=== PATIENT | female | born 1955 | race Caucasian/White ===

== ENCOUNTER 2017-01-02 16:47 | Inpatient (IN) | payer MEDICARE, MEDICAID ==
[~2017-01-02] VITALS: Ht 157.5 cm; Wt 76.0 kg
--- NOTE | ~2017-01-02 | ECH ---
Transthoracic Echocardiography Report (TTE) Demographics Patient Name SOHA IRVIN, Date of Study 01/03/2017 MYRA Patient Number [id number] Visit Number [id number] Date of 1955 Room Number 432 Gender Female Number Age 61 year(s) Referring Jacob Morris MD Chinchilla Farmer Edla Ortiz [facility] Physician Az Carter MD Physician Interpreting Jacob Morris Arcade Technician Physician MD Supervising Ordering Az Carter MD/MLP Physician Nurse Stress Sterile Processing Tech Conclusions Summary Technically fair exam. The estimated left ventricular ejection fraction is 65-70%. Mild-moderate left ventricular hypertrophy. Diastolic assessment reveals Grade I diastolic dysfunction. Mild mitral regurgitation by color Doppler. There is trivial aortic regurgitation by color Doppler. The ascending aorta appears mildly dilated. The maximum diameter measures 3.7 cm. Procedure Type of Study TTE procedure:Echo Complete SF. Procedure Date Date: 01/03/2017 Start: 08:00 AM Technical Quality: Fair due to body habitus. Indications:Elevated Troponin. Appropriate Use Criteria: 9 Height: 62 inches Weight: 163 pounds BSA: 1.75 m Rhythm: Within normal limits HR: 93 bpm BP: 119/72 mmHg M-Mode/2D Measurements LV Diastolic Dimension: 4.21 cm LV Systolic Dimension: 2.53 cm LV Septum Diastolic: 1.54 cm LV PW Diastolic: 1.32 cm AO Root Dimension: 3.02 cm Cardiac Output: 7.41 l/min LA Dimension: 3.89 cm Cardiac Index: 4.23 l/min*m RV Diastolic Dimension: 2.7 cm LA volume index: 28 ml/m LVOT: 2.04 cm LVOT VTI: 24.39 cm RV Base: 2.96 cm LV Stroke volume: 79.68 ml RV Mid: 2.2 cm LV Stroke volume index: 45.53 ml/m RV Length: 5.6 cm Doppler Measurements AV Peak Velocity: 1.47 m/s MV Peak E-Wave: 0.58 m/s AV Peak Gradient: 8.64 mmHg MV Peak A-Wave: 0.91 m/s AV Mean Gradient: 4.53 mmHg MV E/A Ratio: 0.64 LVOT Peak Velocity: 1.41 m/s MV P1/2t: 57.7 msec AV Area (Continuity):3.01 cm MV Deceleration Time: 203.1 msec MV Area (PHT): 3.81 cm PV Peak Velocity: 1.15 m/s PV Peak Gradient: 5.28 mmHg RA Area: 11 cm Findings Left Ventricle The left ventricle is normal in size . Mild-moderate left ventricular hypertrophy. Diastolic assessment reveals Grade I diastolic dysfunction. Right Ventricle Normal right ventricle structure and function. Left Atrium Normal left atrial size. Right Atrium Normal right atrial size. Mitral Valve Normal mitral valve structure and function. Mild mitral regurgitation by color Doppler. Aortic Valve The aortic valve is mildly sclerotic. There is trivial aortic regurgitation by color Doppler. Tricuspid Valve Normal tricuspid valve structure and function. Pulmonic Valve The pulmonic valve is not well visualized. Pericardial Effusion No evidence of pericardial effusion. Miscellaneous The ascending aorta appears mildly dilated. The maximum diameter measures 3.7 cm. Pleural Effusion No evidence of pleural effusion. Contractility Score LV regional wall motion:(0-Non visualized 1-Normal 2-Hypokinesis 3-Akinesis 4-Dyskinesis 5-Aneurysm) Signature
--- NOTE | 2017-01-03 13:23 | HP ---
ADMIT: 01/02/2017 RM/LOC: 432 [facility] MR#: [id number] [address] [address] MYRA FLORES [address] [place] [address] History and Physical SEX: F AGE: 61 : 1955 DATE OF SERVICE: ADDENDUM: I have seen and examined Mrs. Shreya Mcdaniel. I have reviewed Dr. Kwon's notes. I have agreed with the assessment and plan. I will go forward with antibiotic control with ceftriaxone for her recurrent urinary infection. Maintain her on some respiratory support. She may have early pulmonary involvement as well. Elevated troponin consistent with non-STEMI. Maintain her on heparin. Cardiology is consulted to evaluate the patient. We do await their direction on the non-STEMI. Mark Bernardo MD/ bryce JOB #: [id number] CC: Mark Bernadro, Attending Physician Mark Bernardo, Family Physician
--- NOTE | 2017-01-06 14:47 | CO ---
ADMIT: 01/02/2017 RM/LOC: 432 [facility] MR#: [id number] [address] [place], [place] [address] MYRA [address] [place] [address] Consultation SEX: F AGE: 61 : 1955 DATE OF CONSULTATION: 01/04/2017 ATTENDING PHYSICIAN: Mark Bernardo CONSULTING PHYSICIAN: Aubree Swanson MD REASON FOR CONSULT: ESBL E. coli bacteremia. Thank you, Dr. Bernardo, for the consult and involving me in this patient's care. HISTORY OF PRESENT ILLNESS: The patient is a 61-year-old, female, originally from [place], who presented to the ER on December 2016 with complaints of lower back pain, fever, and chills. Symptoms started 4 days prior to admission and she also complained of dysuria and increased urgency and cramping. She was also feeling overall weak. She also has history of dermatomyositis and is on azathioprine and chronic prednisone. She was found to have ESBL UTI and later blood cultures also grew ESBL E. coli. She was started on meropenem, and clinically, urinary symptoms have improved. She was also noted to have elevated troponins and has been evaluated by Cardiology. She is currently on heparin drip. She also complains of cough with productive sputum, which is yellowish to white in color and wheezing. She does not have any known prior pulmonary problems. PAST MEDICAL HISTORY: 1. Type 2 diabetes mellitus. 2. Dermatomyositis, followed by Dr. Dickson. 3. Chronic prednisone use. 4. Osteopenia. ALLERGIES: NO KNOWN DRUG ALLERGIES. CURRENT MEDICATIONS: 1. Aspirin. 2. Prednisone 20 mg daily. 3. Lipitor. 4. Lopressor. 5. Mucinex. 6. Mesa-3. 7. Plavix. 8. Protonix. 9. Vitamin D. 10.Insulin sliding scale. 11.Meropenem 500 mg every 6 hours. SOCIAL HISTORY: She lives alone at home. Denies any smoking, alcohol, or recreational drug use. FAMILY HISTORY: Denies any family history of cardiac disease, diabetes ADMIT: 01/02/2017 RM/LOC: 432 [facility] MR#: [id number] [address] [address] HOYOS BRANDEEMYRA [address] [place] [address] Consultation SEX: F AGE: 61 : 1955 mellitus, or cancer in her family. REVIEW OF SYSTEMS: A 10-point review of systems negative except as mentioned in HPI. PHYSICAL EXAMINATION: VITAL SIGNS: Current temperature 98.5, T-max 103.8, heart rate 78, respirations 20, blood pressure 99/61, and 93% on 2 L. GENERAL: No acute distress. HEENT: Head is normocephalic and atraumatic. Extraocular movements are intact. LYMPH: No palpable anterior/posterior cervical or supraclavicular lymphadenopathy. CHEST: Bilateral wheezing noted. Decreased breath sounds at bases. CARDIOVASCULAR: S1, S2 heard. Regular rate and rhythm. ABDOMEN: Soft, obese, nontender. Active bowel sounds. EXTREMITIES: No peripheral edema. SKIN: No rash noted on exposed skin. PSYCH: Normal affect. Memory intact. DATA REVIEW: CBC today shows white count of 5, hemoglobin 12.8, and platelets of 100. Blood and urine cultures are growing ESBL E. coli. E. coli sensitive to pip/tazo, cefoxitin, meropenem, amikacin, and nitrofurantoin. Renal ultrasound showed bilateral renal cysts. ASSESSMENT AND PLAN: 1. Extended-spectrum beta-lactamase Escherichia coli bacteremia secondary to 2. Extended-spectrum beta-lactamase Escherichia coli urinary tract infection. I will stop the meropenem and narrow antibiotics down to ertapenem IV 1 g once daily. Repeat blood cultures are pending. The patient clinically feels better. 2. Cough/wheezing. Chest x-ray was not suggestive of any pneumonia. We will check a sputum culture and sensitivity and also check sputum wet mount for strongyloides as she is from an endemic area and has been on chronic prednisone. 3. Non ST-elevation myocardial infarction, on heparin drip. 4. Bilateral renal cysts. 5. Dermatomyositis on chronic prednisone. Thank you for the consult, and I will continue to follow the patient. Aubree Swanson MD/ bryce JOB #: [id number] CC: Mark Bernardo, Attending Physician Mark Bernardo, Family Physician
[2017-01-07] MEDS ORDERED: FARXIGA10 MG PO (18:32)
[2017-01-07] MEDS ORDERED: IMURAN DPS50 MG PO (18:32)
[2017-01-07] MEDS ORDERED: ZESTRIL DPS2.5 MG PO (18:32)
[2017-01-07] MEDS ORDERED: VITAMIN D250000 UNIT PO (18:33)
[2017-01-07] MEDS ORDERED: DELTASONE DPS10 MG PO (18:33)
[2017-01-07] MEDS ORDERED: OMEGA 3 1,0001 EACH PO (18:34)
[2017-01-07] MEDS ORDERED: MIRALAX PACKET17 GM PO (18:34)
[2017-01-07] MEDS ORDERED: ACCUNEB DP0.63 MG/3 PO (18:34)
[2017-01-07] MEDS ORDERED: PROVENTIL HFA6.7 GM IH (18:35)
[2017-01-07] MEDS ORDERED: SYMBICORT160 MCG/6 IH (18:35)
[2017-01-07] MEDS ORDERED: INVANZ1 GM IV (18:35)
[2017-01-07] MEDS ORDERED: ASPIRIN81 MG (18:36)
[2017-01-07] MEDS ORDERED: MUCINEX600 MG PO (18:36)
[2017-01-07] MEDS ORDERED: PLAVIX75 MG PO (18:36)
[2017-01-07] MEDS ORDERED: PROTONIX40 MG PO (18:36)
[2017-01-07] MEDS ORDERED: LOPRESSOR DPS50 MG PO (18:36)
--- NOTE | 2017-01-08 07:09 | ER ---
ADMIT: 01/02/2017 RM/LOC: 432 [facility] MR#: [id number] [address] [place], [place] [address] MYRA FLORES [address] [place] [address] Emergency Room Report SEX: F AGE: 61 : 1955 DATE: 01/02/2017 HISTORY OF PRESENT ILLNESS: The patient is a 61-year-old female with past medical history of diabetes on oral medications, asthma, and COPD on no home O2 oxygen, who came to the ER with chief complaint of feeling weak and tired for the last 3 days and fever and chills. Fever to 101 and urinary symptoms, urgency, hesitancy, and nocturia. The patient also complains of bilateral lower back paraspinal pain, which does not increase with palpation of the area, and there is no radiation, and the pain is moderate in severity and sharp. In the ER, the patient had temperature of 100.8, received Tylenol, was tachycardic to 120 and sepsis workup was started. IV fluid was given to the patient, the patient had O2 saturation of 86% to 88% on room air, but states she does not feel short of breath, previous O2 saturation per chart was 2 years ago, and it was 93%, the patient was put on nasal O2 two liters, which increased the O2 saturation to 92%. PHYSICAL EXAMINATION: HEAD AND NECK: Noncontributory, trachea midline. RESPIRATIONS: Bilateral wheezing for which the patient got breathing treatment with DuoNeb nebulizer in the ER, there were no crackles in the lungs. HEART: Normal S1, S2 without any murmurs. ABDOMEN: Soft. EXTREMITIES: No lower extremity edema or tenderness, no CVA tenderness. Chest x-ray showed left lung atelectasis without any infiltration, which was better than the previous x-ray on 2013, urine was turbid color, was positive for 250 white BC, and nitrite was positive and there were lots of clumps all suggestive of urinary tract infection for which the patient was given ceftriaxone 1 g IV in the ER. Considering the patient's recent weakness and low O2 saturation, EKG was done, which did not show any ST or T changes or arrhythmia, cardiac enzymes were sent and troponin I was 1.46, and D-dimer was also 0.9, the patient was consulted and admitted to Internal Medicine with Cardiology on board for non-STEMI, urinary tract infection. The patient was started on heparin IV in the ER. Wayne Conley MD/ bryce JOB #: [id number] CC: Mark Bernardo MD, Attending Physician Mark Bernardo MD, Family Physician
--- NOTE | 2017-01-13 16:10 | HP ---
ADMIT: 01/02/2017 RM/LOC: 432 [facility] MR#: [id number] [address] [address] MYRA FLORES [address] [place] [address] History and Physical SEX: F AGE: 61 : 1955 DATE OF SERVICE: 01/02/2017 HISTORY OF PRESENT ILLNESS: A 61-year-old female who presents with fevers, chills, suprapubic and back pain, dysuria since . She has noted painful urination and increased urgency and cramping back pain that is worse with urination. She does report generalized weakness as well, but sounds like this has been progressive over the last 7 years. She has been having chills and nausea, but no vomiting. Energy and appetite are stable and the patient has been drinking lots of fluids. Endorses chills and temperature this morning was 101 degrees at home. She did report an episode of shortness of breath earlier today after having intense chills and rigors. Reports the DuoNebs helped. Denies any chest pain, dizziness, lightheadedness, cough, nasal congestion, sick contacts, diarrhea, or constipation. Denies any history of angina or cardiac problems. Denies palpitations or focal weakness. Upon arrival to the emergency room, the patient was given Tylenol, 1 L normal saline, Rocephin, and started on a heparin drip. The patient will be admitted for sepsis likely secondary to urinary tract infection and NSTEMI. PAST MEDICAL HISTORY: Type 2 diabetes, noninsulin dependent, chronic prednisone use, dermatomyositis, and myopathy, osteopenia. HOME MEDICATIONS: 1. Albuterol nebulizer four times a day p.r.n. 2. Azathioprine 50 mg daily. 3. Calcium carbonate. 4. Vitamin D3 of 1000 units. 5. Farxiga 10 mg daily. 6. Folic acid 2 mg daily. 7. Lisinopril 20 mg daily. 8. Metoprolol 100 mg b.i.d. 9. Prilosec 40 mg daily. 10.MiraLax 17 g daily. 11.Prednisone 20 mg daily. ALLERGIES: NO KNOWN DRUG ALLERGIES. FAMILY HISTORY: No known history of heart disease, otherwise noncontributory. SOCIAL HISTORY: Former smoker, denies alcohol use. REVIEW OF SYSTEMS: Full review of systems was obtained and it was negative other than noted in the HPI above. PHYSICAL EXAMINATION: VITAL SIGNS: Upon arrival in the ER include blood pressure of 98/75, heart rate 118, respiratory rate 20, temperature 100.8 degrees Fahrenheit, oxygen saturation 92% on 2 L. GENERAL: Alert and oriented female, who appears stated age, in no acute distress. HEENT: Mucous membranes moist. Extraocular movements are intact. No scleral ADMIT: 01/02/2017 RM/LOC: 432 [facility] MR#: [id number] [address] [place] [id number] [facility] [address] [place] [address] History and Physical SEX: F AGE: 61 : 1955 icterus. CARDIOVASCULAR: Tachycardic, otherwise regular rhythm, no murmurs or gallops noted. RESPIRATORY: Lungs are clear to auscultation bilaterally on my exam, though diminished at bases. Normal respiratory effort. Normal work of breathing. Nasal cannula in place at 2 L. ABDOMEN: Mild suprapubic tenderness, otherwise nontender. Bowel sound present. No costovertebral angle tenderness. EXTREMITIES: No lower extremity edema. Pulses are intact. SKIN: No rashes or lesions noted on exposed skin. NEUROLOGIC: 3/5 strength of distal muscles of upper and lower extremities. 3/5 strength of proximal lower extremities muscles. PSYCH: The patient answers questions appropriately and does not appear anxious or depressed. LABORATORY DATA: White blood cell count 11, with neutrophil predominance. Creatinine 0.5, troponin 1.460, procalcitonin 3.41, lactic acid 1.7, lipase normal, albumin 2.8. AST mildly elevated at 50. Influenza negative. UA with positive nitrite and positive leukocyte esterase and 252 white blood cells, 1 squamous cell. Urine culture and blood culture are pending. IMAGING: Chest x-ray on my read appears similar to prior, old read notes some new markings in the right lung base which could be atelectasis. ASSESSMENT AND PLAN: A 61-year-old female with history of type 2 diabetes and dermatomyositis on chronic prednisone and azathioprine, admitted for sepsis likely due to urinary tract infection and [id number] myocardial infarction. 1. Sepsis secondary to urinary tract infection and possible pyelonephritis. a. We will continue Rocephin and fluid resuscitation. b. Continue p.r.n. Tylenol. c. We will await urine and blood cultures. d. We will get ultrasound to evaluate for possible pyelonephritis. 2. Iyv-PE-zptojpxro myocardial infarction. a. Troponin 1.46, we will trend it to peak. b. Plan for echocardiogram and Cardiology consult in the morning, we will make n.p.o. midnight, pending Cardiology plans. c. Continue heparin for ACS protocol. d. Give aspirin, Plavix, atorvastatin. We will hold beta delores due to hypotension and sepsis. e. Also holding MART inhibitor for sepsis as well. 3. Type 2 diabetes. a. Holding Farxiga while inpatient. b. We will do sliding scale insulin and four times daily blood sugar checks and monitor for now. c. We will check hemoglobin A1c. 4. Dermatomyositis with chronic prednisone and azathioprine use. ADMIT: 01/02/2017 RM/LOC: 432 [facility] MR#: [id number] [facility] [address] [address] [facility] [address] [place] [address] History and Physical SEX: F AGE: 61 : 1955 a. We will continue prednisone 20 mg daily. b. We will hold azathioprine due to sepsis. c. We will threshold to start stress-dose steroids if the patient does not improve after fluid bolus. d. We will consult PT and OT. 5. Hypoxia. a. Requiring 2 L nasal cannula, chest x-ray without consolidation. Unclear if this is due to underlying lung disease versus sepsis versus NSTEMI. b. We will monitor. Maria Dolores Kwon MD / Mark Bernardo MD / modl JOB #: [id number] CC: Mark Bernardo, Attending Physician Mark Bernardo, Family Physician Tim Garner MD
--- NOTE | 2017-01-17 18:07 | DS ---
ADMIT: 01/02/2017 RM/LOC: 432 [facility] MR#: [id number] [address] [address] MYRA FLORES [address] [place] [address] General Discharge Summary SEX: F AGE: 61 : 1955 ADMISSION DATE: 01/02/2017 DISCHARGE DATE: 01/06/2017 ATTENDING AT TIME OF DISCHARGE: Mark Bernardo MD FINAL DIAGNOSES: 1. ESBL (extended-spectrum beta-lactamases) E. (Escherichia) coli bacteremia. 2. ESBL (extended-spectrum beta-lactamases) E. (Escherichia) coli UTI (urinary tract infection). 3. Thrombocytopenia. 4. Upc-MW-lolbpnn elevated myocardial infarction. 5. COPD (chronic obstructive pulmonary disease) exacerbation. 6. Sepsis, resolved. 7. Type 2 diabetes mellitus. 8. History of dermatomyositis. CONSULTATIONS: 1. Perez James MD for Cardiology. 2. Aubree Swanson MD with Infectious Disease. REASON FOR ADMISSION: Please HPI; however, patient is admitted for sepsis. Admitted to the service of [facility] under the care of myself, Mark Bernardo MD. Received goal-directed therapy for intervention for sepsis and non ST-segment elevated myocardial infarction as well as intervention for hypoxia associated with her COPD. Received appropriate consultation with Infectious Disease as well as Cardiology. Cardiology does make recommendations on management of her zdv-QK-[id number] elevated myocardial infarction and they will see the patient for further diagnostic evaluation as an outpatient. Dr. Swanson did assume management of her antibiotic therapy. They do have a line placed and will continue outpatient antibiotic Invanz until January 16. DISPOSITION: Home. DISCHARGE CONDITION: Stable. DISCHARGE MEDICATIONS: See the medication reconciliation, is reviewed and ADMIT: 01/02/2017 RM/LOC: 432 [facility] MR#: [id number] [address] [facility] [address] [place] [address] MYRA [address] [place] [address] General Discharge Summary SEX: F AGE: 61 : 1955 accurate. DISCHARGE INSTRUCTIONS: Discharge to home. Follow up with Dr. Bernardo in 2 weeks' time. Complete antibiotics per ID's recommendations. Also continue to follow up with Cardiology per their discretion for further intervention and diagnostic evaluation for her xpa-SJ-gtxmsis elevated myocardial infarction. The patient no longer has a primary care provider; therefore, she will see myself in clinic in 2 weeks' time. Discussed the plan with the patient with use of Interpretive Services. Patient expressed understanding, was in agreement, had no further questions. Thirty-five minutes spent on discharge activities with the patient. Mark Bernardo MD/ bart JOB #: [id number] CC: Mark Bernardo MD, Attending Physician Mark Bernardo MD, Family Physician
--- NOTE | 2017-01-21 17:23 | CO ---
ADMIT: 01/02/2017 RM/LOC: [address] [facility] MR#: [id number] [address] [facility] [address] [place], [place] [address] DIANE FLORES [address] [place] [address] Consultation SEX: F AGE: 61 : 1955 DATE OF CONSULTATION: 01/03/2017 ATTENDING PHYSICIAN: Mark Bernardo CONSULTING PHYSICIAN: Perez James MD REASON FOR CONSULTATION: [id number] [place]. Sahntal White RN, scribing for Isidro Pereira MD. HISTORY OF PRESENT ILLNESS: Diane is a very pleasant, 61-year-old, Croatian- speaking female, I have been asked to see in Cardiology consultation by Dr. Bernardo for elevated cardiac enzymes. She has history of dermatomyositis, on chronic steroid use as well as history of hypertension, hyperlipidemia, diabetes, and occasional tobacco use. She denies any family history of coronary artery disease. Diane presented with complaints of increased shortness of breath yesterday evening. Her daughter states that she has had fevers and chills for 3 days. She has positive UTI but negative blood cultures. She had increased shortness of breath, beginning yesterday morning and decreased activity tolerance. She reports lightheadedness and nausea for about a week. She had temperature up to 101 at one point. Today, the temperature is 100.6. She had cardiac enzymes drawn with her CK of 292, MB of 15.3. Three sets of cardiac enzymes showed elevation of troponin with third set of 1.36, peak on second set of 1.60. She does have chronically elevated CK and MB because of her dermatomyositis and looking back last hospitalization which was about 5 years ago, her CKs were as high as 2700 with MBs as high as 256. She has never had elevated troponins in the past. She denies any chest pain, pressure, or tightness and denies any shortness of breath today. She denies any peripheral edema, orthopnea, palpitations, or presyncope currently. Vital signs have been stable with some mild tachycardia, heart rates in the low 100. Again, she is afebrile; blood pressure is 114/71. EKG demonstrates normal sinus rhythm with left anterior fascicular block. PAST MEDICAL HISTORY: Includes: 1. Dermatomyositis, on chronic steroid use. 2. Hypertension. 3. Hyperlipidemia. 4. Diabetes. 5. Occasional tobacco use. 6. Current urinary tract infection with pyelonephritis. 7. Osteopenia. 8. Osteoarthritis. PAST SURGICAL HISTORY: Denies any past surgical history. ALLERGIES: NO KNOWN MEDICATION ALLERGIES. MEDICATIONS: Current medications include: 1. Aspirin 81 daily. ADMIT: 01/02/2017 RM/LOC: 432 [facility] MR#: [id number] [address] [id number] HOYOS BRANDEEDIANE CARRERA [address] [place] [address] Consultation SEX: F AGE: 61 : 1955 2. Deltasone 20 daily. 3. Lipitor 80 daily. 4. Plavix 75 daily. 5. Protonix 40 daily. 6. Zithromax 500 daily. 7. NovoLog sliding scale insulin a.c. and at bedtime. 8. Heparin drip per protocol. 9. Rocephin 1 g IV q. 24 hours. 10.Normal saline IV 125 mL an hour. 11.Plavix. 12.Heparin drip were started on admission. FAMILY HISTORY: Positive family history of stroke in mother. Denies family history of heart disease, diabetes, or cancer. SOCIAL HISTORY: Diane lives with family members. Her daughter is present with her today. She denies any special diet, caffeine, alcohol or drug use. Her daughter does report she has occasional tobacco use. REVIEW OF SYSTEMS: GENERAL: She currently has a fever and reports increased fatigue over the last week. Denies any weight changes. ENT: Denies hearing loss or problems with nose, mouth or throat. PULMONARY: Positive for productive cough. No hemoptysis or obstructive sleep apnea. Denies any history of COPD, GASTROINTESTINAL: Denies heartburn or difficulty swallowing. No change in bowel habits. Denies dark or bloody stools. No history of ulcers, hiatal hernia, or gallbladder or liver disease. GENITOURINARY: Positive urinary tract infection with pyelonephritis currently with positive for hematuria. Denies any kidney stones or kidney failure. MUSCULOSKELETAL: History of osteopenia, osteoarthritis. Denies gout or muscle pains. ENDOCRINE: History of diabetes mellitus. No thyroid disease. HEMATOLOGIC: Dermatomyositis with chronic steroid use. Denies any cancer or bleeding issues. NEUROLOGIC: Denies chronic headaches, dizziness, syncope, stroke, seizures or numbness or tingling. PSYCHIATRIC: Denies history of mental illness or feelings of depression. PHYSICAL EXAMINATION: VITAL SIGNS: Blood pressure 114/71, heart rate 111, respirations 20, temperature 100.6, oxygenation 92% on O2. GENERAL: SKIN: [place], warm and dry. EYES: Sclerae clear. No xanthelasmas. ENT: Oral mucosa is pink and moist. No jugular venous distention or carotid bruits. CHEST: Respirations are even and unlabored. Lungs are clear to auscultation. HEART: Regular rate and rhythm. Normal S1, S2. No murmurs, rubs or gallops. ABDOMEN: Soft and nontender. MUSCULOSKELETAL: Gait is normal. ADMIT: 01/02/2017 RM/LOC: [address] [facility] MR#: [id number] [address] [address] DIANE FLORES [facility] [place] [address] Consultation SEX: F AGE: 61 : 1955 EXTREMITIES: Peripheral pulses palpable. No clubbing, cyanosis or edema. PSYCHIATRIC: Alert and oriented. Mood and affect are appropriate. DIAGNOSTIC DATA: Sodium 142, potassium 3.4, BUN 13, creatinine 0.3, glucose 117. INR 1.17. AST 40, ALT 50, magnesium 1.8. CK 292 MB 15.3, D jeovanny troponin on third set 1.36 with peak of 1.6 on second set. White blood cell count 8.7, hemoglobin 14.6, hematocrit 44.0, platelets 95. Hemoglobin A1c 8.5. Positive UA for infection. ASSESSMENT AND PLAN: 1. Possible acute coronary syndrome/non-ST elevated myocardial infarction. 2. Urinary tract infections. 3. Possible sepsis. 4. Diabetes. 5. Dermatomyositis. Diane is a pleasant 61-year-old diabetic with no prior history of coronary artery disease, admitted with fever and urinary symptoms with UTI. She was more short of breath yesterday but no chest discomfort. She has mildly increased cardiac enzymes. Her CK is not chronically elevated, probably secondary to her dermatomyositis. I am not convinced she has an ACS but has multiple risk factors and some concerning features. She currently is on heparin drip per protocol. I would recommend this for another 24-48 hours and continue to follow cardiac enzymes in the morning. I will start her on Lopressor 25 p.o. b.i.d. for beta delores. I discussed with her daughter today that at some point, she will need stress test or coronary angiography in future depending on echocardiogram results and clinical course. Thank you for the consultation. "I have read and agree with the documentation that has been completed regarding this visit. By signing this record, I attest that the documentation was completed in my physical presence and is an accurate record of the encounter." Shantal White RN / Perez James MD / bryce JOB #: [id number] CC: Mark Bernardo, Attending Physician Mark Bernardo, Family Physician
== END 2017-01-06 16:30 | disposition home or self-care (01) | DRG 871 ==
LOC: ER 16:47 → 4PCU 20:04
PROVIDERS: ADMIT Internal Medicine
DX: A41.51 Sepsis due to Escherichia coli [E. coli] (principal); I21.4 Non-ST elevation (NSTEMI) myocardial infarction; M33.90 Dermatopolymyositis, unspecified, organ involvement unspecified; N39.0 Urinary tract infection, site not specified; E11.9 Type 2 diabetes mellitus without complications; M19.90 Unspecified osteoarthritis, unspecified site; Z23 Encounter for immunization; M85.80 Other specified disorders of bone density and structure, unspecified site; J45.909 Unspecified asthma, uncomplicated; J44.9 Chronic obstructive pulmonary disease, unspecified; M54.5 Low back pain; Z79.52 Long term (current) use of systemic steroids; Z79.84 Long term (current) use of oral hypoglycemic drugs; R09.02 Hypoxemia; Z72.0 Tobacco use; Z16.12 Extended spectrum beta lactamase (ESBL) resistance; N28.1 Cyst of kidney, acquired